=== PATIENT | female | born 1940 ===

== ENCOUNTER 2018-10-02 14:28 | Inpatient (IN) | payer MEDICARE ==
[~2018-10-02] VITALS: Ht 154.9 cm; Wt 51.7 kg
[2018-10-02] MEDS ORDERED: Z GUARD REMEDY PASTE 57 GM TUBE TOP PRN (18:45)
[2018-10-02] MEDS ORDERED: DULO60CA45 PO (19:06)
[2018-10-02] MEDS ORDERED: METF-440 PO (19:06)
[2018-10-02] MEDS ORDERED: FLUT1BLS6 IH (19:06)
[2018-10-02] MEDS ORDERED: ALPR0.5T8 PO (19:06)
[2018-10-02] MEDS ORDERED: ARIP5TAB10 PO (19:06)
[2018-10-02] MEDS ORDERED: LINA290C PO (19:06)
[2018-10-02] MEDS ORDERED: LACT1CAP69 PO (19:06)
[2018-10-02] MEDS ORDERED: CARV3.12 PO (19:06)
[2018-10-02] MEDS ORDERED: OXYC-451 PO (19:06)
[2018-10-02] MEDS ORDERED: PANT40TA4 PO (19:06)
[2018-10-02] MEDS ORDERED: EPIN0.3P3 IJ (19:06)
[2018-10-02] MEDS ORDERED: MONT10TA25 PO (19:06)
[2018-10-02] MEDS ORDERED: DEXT5TAB15 PO (19:06)
[2018-10-02] MEDS ORDERED: CYCL5TAB PO (19:06)
[2018-10-02] MEDS ORDERED: HYDR-4075 PO (19:06)
[2018-10-02] MEDS ORDERED: ROSU20TA2 PO (19:06)
[2018-10-02] MEDS ORDERED: TRAZ-214 PO (19:06)
[2018-10-02] MEDS ORDERED: BISA-79 PO (19:06)
[2018-10-02] MEDS ORDERED: LEVO25TA9 PO (19:06)
[2018-10-02] MEDS ORDERED: MORP15TA PO (19:06)
[2018-10-02 19:39] VITALS: BP 136/57
[2018-10-02] MEDS: OXYCODONE HCL 5 MG TABLET PO PRN (20:03)
[2018-10-02 20:29] VITALS: BP 125/52
[2018-10-02 20:40] VITALS: BP 125/52
[2018-10-02] MEDS ORDERED: MORPHINE SULFATE IR 30 MG TABLET PO PRN (20:45)
[2018-10-02] MEDS: MORPHINE SULFATE SR 15 MG TABLET.SA PO SCH (21:22)
[2018-10-02] MEDS ORDERED: MONTELUKAST SODIUM 10 MG TABLET ONE (22:10)
[2018-10-02] MEDS ORDERED: TRAZODONE 100 MG TABLET ONE (22:11)
[2018-10-02] MEDS ORDERED: ARIPIPRAZOLE 5 MG TABLET ONE (22:11)
[2018-10-02] MEDS: TRAZODONE 100 MG TABLET PO SCH (22:18)
[2018-10-02] MEDS: ATORVASTATIN 40 MG TABLET PO SCH (22:18)
[2018-10-02] MEDS: MONTELUKAST SODIUM 10 MG TABLET PO SCH (22:18)
[2018-10-02] MEDS: ARIPIPRAZOLE 5 MG TABLET PO SCH (22:18)
[2018-10-03] MEDS: OXYCODONE HCL 5 MG TABLET PO PRN ×6 (00:14→23:51)
[2018-10-03] MEDS: MORPHINE SULFATE SR 15 MG TABLET.SA PO SCH ×3 (06:12→21:00)
[2018-10-03 06:17] VITALS: BP 115/52
[2018-10-03] MEDS: CARVEDILOL 3.125 MG TABLET PO SCH ×2 (08:38→17:06)
[2018-10-03] MEDS: DULOXETINE 60 MG CAPSULE.DR PO SCH (08:38)
[2018-10-03] MEDS: FLUTICASONE/VILANTEROL 1 EACH BLST.W.DEV INH SCH (08:38)
[2018-10-03] MEDS: hydrALAZINE HCL 10 MG TABLET PO SCH ×3 (08:39→17:05)
[2018-10-03] MEDS: LEVOTHYROXINE SODIUM 25 MCG TABLET PO SCH (08:49)
[2018-10-03 09:28] VITALS: BP 111/45
[2018-10-03] MEDS ORDERED: DEXTROSE 50% 50 ML DISP.SYRIN IV PRN (10:00)
[2018-10-03] MEDS: METFORMIN HCL 500 MG TABLET PO SCH ×2 (10:15→17:06)
[2018-10-03] MEDS ORDERED: Medication Not On Formulary EA (Cyclobenzaprine Hcl 10 MG) PO SCH (10:45)
[2018-10-03] MEDS: ACIDOPHILUS/BULGARICUS CHEW TAB PO SCH (11:38)
[2018-10-03] MEDS: BLOOD SUGAR DIAGNOSTIC 1 EACH STRIP VI SCH ×3 (11:44→20:52)
[2018-10-03] MEDS: INSULIN REGULAR, HUMAN 300 UNIT/3 ML VIAL SQ PRN (11:45)
[2018-10-03 16:53] VITALS: BP 142/69
[2018-10-03] MEDS ORDERED: AMPHET ASP PO SCH (17:00)
[2018-10-03] MEDS ORDERED: D AMPHET PO SCH (17:00)
[2018-10-03] MEDS ORDERED: [UNRECOGNIZED DRUG - OTHER] PO SCH (17:00)
[2018-10-03] MEDS ORDERED: AMPHET PO SCH (17:00)
[2018-10-03 20:01] VITALS: BP 119/61
[2018-10-03] MEDS: ATORVASTATIN 40 MG TABLET PO SCH (20:28)
[2018-10-03] MEDS: TRAZODONE 100 MG TABLET PO SCH (20:28)
[2018-10-03] MEDS: MONTELUKAST SODIUM 10 MG TABLET PO SCH (20:28)
[2018-10-03] MEDS: ARIPIPRAZOLE 5 MG TABLET PO SCH (20:29)
[2018-10-03] MEDS ORDERED: Medication Not On Formulary EA (Linaclotide (Linzess) 290 MCG) PO SCH (21:00)
[2018-10-04] MEDS: MORPHINE SULFATE SR 15 MG TABLET.SA PO SCH ×3 (05:00→21:07)
[2018-10-04 05:48] VITALS: BP 115/44
[2018-10-04] MEDS: BLOOD SUGAR DIAGNOSTIC 1 EACH STRIP VI SCH ×4 (06:30→20:48)
[2018-10-04 08:00] VITALS: BP 136/52
[2018-10-04] MEDS: METFORMIN HCL 500 MG TABLET PO SCH ×2 (08:24→18:31)
[2018-10-04] MEDS: ACIDOPHILUS/BULGARICUS CHEW TAB PO SCH (08:25)
[2018-10-04] MEDS: OXYCODONE HCL 5 MG TABLET PO PRN ×3 (08:25→18:31)
[2018-10-04] MEDS: DULOXETINE 60 MG CAPSULE.DR PO SCH (08:28)
[2018-10-04] MEDS: CARVEDILOL 3.125 MG TABLET PO SCH ×2 (08:30→18:32)
[2018-10-04] MEDS: hydrALAZINE HCL 10 MG TABLET PO SCH ×3 (08:31→18:31)
[2018-10-04] MEDS: FLUTICASONE/VILANTEROL 1 EACH BLST.W.DEV INH SCH (08:33)
[2018-10-04] MEDS: LEVOTHYROXINE SODIUM 25 MCG TABLET PO SCH (08:34)
[2018-10-04] MEDS ORDERED: Medication Not On Formulary EA (Lactobacillus Acidophilus (Probiotic) 1 EACH) PO SCH (09:00)
[2018-10-04] MEDS: BISACODYL 10 MG SUPP.RECT RC ONE ×2 (12:27→15:04)
[2018-10-04] MEDS: ALPRAZOLAM 0.5 MG TABLET PO PRN (15:04)
[2018-10-04 16:54] VITALS: BP 126/64
[2018-10-04] MEDS: ATORVASTATIN 40 MG TABLET PO SCH (20:39)
[2018-10-04] MEDS: TRAZODONE 100 MG TABLET PO SCH (20:40)
[2018-10-04] MEDS: ARIPIPRAZOLE 5 MG TABLET PO SCH (20:40)
[2018-10-04] MEDS: MONTELUKAST SODIUM 10 MG TABLET PO SCH (20:40)
[2018-10-04] MEDS: CYCLOBENZAPRINE HCL 10 MG TABLET PO PRN (20:41)
[2018-10-04 20:48] VITALS: BP 113/50
[2018-10-04] MEDS: INSULIN REGULAR, HUMAN 300 UNIT/3 ML VIAL SQ PRN (20:54)
[2018-10-05] MEDS: OXYCODONE HCL 5 MG TABLET PO PRN ×4 (00:20→22:02)
[2018-10-05 05:00] VITALS: BP 119/50
[2018-10-05] MEDS: MORPHINE SULFATE SR 15 MG TABLET.SA PO SCH ×3 (05:33→21:05)
[2018-10-05] MEDS: BLOOD SUGAR DIAGNOSTIC 1 EACH STRIP VI SCH ×4 (06:41→21:10)
[2018-10-05 08:56] VITALS: BP 98/38
[2018-10-05] MEDS: ACIDOPHILUS/BULGARICUS CHEW TAB PO SCH (10:23)
[2018-10-05] MEDS: METFORMIN HCL 500 MG TABLET PO SCH ×2 (10:24→17:42)
[2018-10-05] MEDS: FLUTICASONE/VILANTEROL 1 EACH BLST.W.DEV INH SCH (10:25)
[2018-10-05] MEDS: DULOXETINE 60 MG CAPSULE.DR PO SCH (10:26)
[2018-10-05] MEDS: CARVEDILOL 3.125 MG TABLET PO SCH ×2 (10:26→17:43)
[2018-10-05] MEDS: LEVOTHYROXINE SODIUM 25 MCG TABLET PO SCH (10:27)
[2018-10-05] MEDS: hydrALAZINE HCL 10 MG TABLET PO SCH ×3 (10:27→17:47)
[2018-10-05 18:05] VITALS: BP 107/45
[2018-10-05] MEDS: MONTELUKAST SODIUM 10 MG TABLET PO SCH (21:03)
[2018-10-05] MEDS: ATORVASTATIN 40 MG TABLET PO SCH (21:03)
[2018-10-05] MEDS: ARIPIPRAZOLE 5 MG TABLET PO SCH (21:03)
[2018-10-05] MEDS: TRAZODONE 100 MG TABLET PO SCH (21:04)
[2018-10-05 21:14] VITALS: BP 111/49
[2018-10-06] MEDS: OXYCODONE HCL 5 MG TABLET PO PRN ×5 (02:27→23:17)
[2018-10-06] MEDS: MORPHINE SULFATE SR 15 MG TABLET.SA PO SCH ×3 (05:02→21:04)
[2018-10-06] MEDS: CYCLOBENZAPRINE HCL 10 MG TABLET PO PRN ×2 (05:35→16:52)
[2018-10-06 06:20] VITALS: BP 103/46
[2018-10-06] MEDS: BLOOD SUGAR DIAGNOSTIC 1 EACH STRIP VI SCH ×4 (06:30→21:03)
[2018-10-06] MEDS: PANTOPRAZOLE SODIUM 40 MG TABLET.DR PO SCH (06:43)
[2018-10-06 08:20] VITALS: BP 91/34
[2018-10-06] MEDS: FLUTICASONE/VILANTEROL 1 EACH BLST.W.DEV INH SCH (08:51)
[2018-10-06] MEDS: DULOXETINE 60 MG CAPSULE.DR PO SCH (08:51)
[2018-10-06] MEDS: ACIDOPHILUS/BULGARICUS CHEW TAB PO SCH (08:51)
[2018-10-06] MEDS: METFORMIN HCL 500 MG TABLET PO SCH ×2 (08:51→17:38)
[2018-10-06] MEDS: CARVEDILOL 3.125 MG TABLET PO SCH ×2 (08:51→17:40)
[2018-10-06] MEDS: LEVOTHYROXINE SODIUM 25 MCG TABLET PO SCH (08:52)
[2018-10-06] MEDS: hydrALAZINE HCL 10 MG TABLET PO SCH ×3 (09:00→17:39)
[2018-10-06] MEDS: ALPRAZOLAM 0.5 MG TABLET PO PRN (10:58)
[2018-10-06 17:16] VITALS: BP 122/49
[2018-10-06 20:15] VITALS: BP 128/56
[2018-10-06] MEDS: CYCLOBENZAPRINE HCL 10 MG TABLET PO SCH (20:51)
[2018-10-06] MEDS: ARIPIPRAZOLE 5 MG TABLET PO SCH (20:51)
[2018-10-06] MEDS: ATORVASTATIN 40 MG TABLET PO SCH (20:52)
[2018-10-06] MEDS: MONTELUKAST SODIUM 10 MG TABLET PO SCH (20:52)
[2018-10-06] MEDS: TRAZODONE 100 MG TABLET PO SCH (20:52)
[2018-10-07] MEDS: OXYCODONE HCL 5 MG TABLET PO PRN ×3 (03:18→15:51)
[2018-10-07 05:30] VITALS: BP 125/59
[2018-10-07] MEDS ORDERED: MORPHINE SULFATE IR 30 MG TABLET ONE (05:42)
[2018-10-07] MEDS: CYCLOBENZAPRINE HCL 10 MG TABLET PO PRN (06:34)
[2018-10-07] MEDS: MORPHINE SULFATE SR 15 MG TABLET.SA PO SCH ×3 (06:35→21:09)
[2018-10-07] MEDS: BLOOD SUGAR DIAGNOSTIC 1 EACH STRIP VI SCH ×4 (07:06→21:14)
[2018-10-07] MEDS: METFORMIN HCL 500 MG TABLET PO SCH ×2 (07:48→17:15)
[2018-10-07] MEDS: CARVEDILOL 3.125 MG TABLET PO SCH ×2 (07:51→18:07)
[2018-10-07 07:53] VITALS: BP 117/59
[2018-10-07] MEDS: hydrALAZINE HCL 10 MG TABLET PO SCH ×3 (09:00→17:00)
[2018-10-07] MEDS: LEVOTHYROXINE SODIUM 25 MCG TABLET PO SCH (09:27)
[2018-10-07] MEDS: PREGABALIN 50 MG CAPSULE PO SCH ×3 (09:27→17:16)
[2018-10-07] MEDS: ACIDOPHILUS/BULGARICUS CHEW TAB PO SCH (09:27)
[2018-10-07] MEDS: DULOXETINE 60 MG CAPSULE.DR PO SCH (09:28)
[2018-10-07] MEDS: FLUTICASONE/VILANTEROL 1 EACH BLST.W.DEV INH SCH (09:28)
[2018-10-07] MEDS: LIDOCAINE 5% PATCH TD SCH (09:28)
[2018-10-07 16:20] VITALS: BP 126/57
[2018-10-07 19:37] VITALS: BP 117/54
[2018-10-07] MEDS: ARIPIPRAZOLE 5 MG TABLET PO SCH (21:06)
[2018-10-07] MEDS: TRAZODONE 100 MG TABLET PO SCH (21:07)
[2018-10-07] MEDS: ATORVASTATIN 40 MG TABLET PO SCH (21:07)
[2018-10-07] MEDS: CYCLOBENZAPRINE HCL 10 MG TABLET PO SCH (21:07)
[2018-10-07] MEDS: MONTELUKAST SODIUM 10 MG TABLET PO SCH (21:08)
[2018-10-07] MEDS: ENOXAPARIN SODIUM 40 MG/0.4 ML DISP.SYRIN SQ SCH (21:18)
[2018-10-08 05:12] VITALS: BP 130/57
[2018-10-08] MEDS: MORPHINE SULFATE SR 15 MG TABLET.SA PO SCH ×3 (06:21→21:18)
[2018-10-08] MEDS: BLOOD SUGAR DIAGNOSTIC 1 EACH STRIP VI SCH ×4 (06:32→21:26)
[2018-10-08 07:13] LABS: BASOPHILS # (AUTO) 0.1 K/uL (0.0-8.0); EOSINOPHILS # (AUTO) 0.5 K/uL (0.0-0.7); EOSINOPHILS % (AUTO) 6.8 % (0.0-7.0); HEMATOCRIT 25.8 % (31.2-41.9); HEMOGLOBIN 8.5 g/dL (10.9-14.3); LYMPHOCYTES # (AUTO) 1.3 K/uL (20.0-40.0); MEAN CORPUSCULAR HEMOGLOBIN 29.5 uug (24.7-32.8); MEAN CORPUSCULAR HGB CONC 33 g/dL (32.3-35.6); MONOCYTES # (AUTO) 0.6 K/uL (2.0-10.0); NEUTROPHILS % (AUTO) 66.2 % (38.5-71.5); PLATELET COUNT (AUTO) 277 K/uL (179-408); RED BLOOD CELL COUNT(AUTO) 2.89 MIL/uL (3.63-4.92); WHITE BLOOD COUNT (AUTO) 7.5 K/uL (3.8-11.8)
[2018-10-08 07:31] LABS: ALANINE AMINOTRANSFERASE 21 U/L (14-59); ALKALINE PHOSPHATASE 84 U/L (50-136); ASPARTATE AMINOTRANSFERASE 15 U/L (15-37); BILIRUBIN,TOTAL 0.3 mg/dL (0.2-1.0); CARBON DIOXIDE 34 mmol/L (21-32); CHLORIDE 100 mmol/L (98-107); CREATININE 0.6 mg/dL (0.6-1.3); GLUCOSE 112 mg/dL (74-106); MAGNESIUM 1.9 mg/dL (1.8-2.4); TOTAL PROTEIN, SERUM 6.7 g/dL (6.4-8.2); UREA NITROGEN, BLOOD 11 mg/dL (7-18)
[2018-10-08] MEDS: CARVEDILOL 3.125 MG TABLET PO SCH ×2 (08:00→17:33)
[2018-10-08] MEDS: OXYCODONE HCL 5 MG TABLET PO PRN ×3 (08:10→19:43)
[2018-10-08] MEDS: DULOXETINE 60 MG CAPSULE.DR PO SCH (08:11)
[2018-10-08] MEDS: hydrALAZINE HCL 10 MG TABLET PO SCH ×3 (08:19→17:00)
[2018-10-08] MEDS: LEVOTHYROXINE SODIUM 25 MCG TABLET PO SCH (08:20)
[2018-10-08] MEDS: ACIDOPHILUS/BULGARICUS CHEW TAB PO SCH (08:20)
[2018-10-08] MEDS: METFORMIN HCL 500 MG TABLET PO SCH ×2 (08:21→17:25)
[2018-10-08] MEDS: PREGABALIN 50 MG CAPSULE PO SCH ×3 (08:21→17:22)
[2018-10-08] MEDS: FLUTICASONE/VILANTEROL 1 EACH BLST.W.DEV INH SCH (08:29)
[2018-10-08] MEDS: LIDOCAINE 5% PATCH TD SCH (08:30)
[2018-10-08 09:00] VITALS: BP 93/42
[2018-10-08 16:15] VITALS: BP 115/39
[2018-10-08 19:57] VITALS: BP 113/31
[2018-10-08] MEDS: ARIPIPRAZOLE 5 MG TABLET PO SCH (21:15)
[2018-10-08] MEDS: CYCLOBENZAPRINE HCL 10 MG TABLET PO SCH (21:15)
[2018-10-08] MEDS: ATORVASTATIN 40 MG TABLET PO SCH (21:15)
[2018-10-08] MEDS: MONTELUKAST SODIUM 10 MG TABLET PO SCH (21:17)
[2018-10-08] MEDS: TRAZODONE 100 MG TABLET PO SCH (21:17)
[2018-10-08] MEDS: ENOXAPARIN SODIUM 40 MG/0.4 ML DISP.SYRIN SQ SCH (21:26)
[2018-10-08] MEDS: ALPRAZOLAM 0.5 MG TABLET PO PRN (21:28)
[2018-10-09 05:14] VITALS: BP 157/63
[2018-10-09] MEDS: MORPHINE SULFATE SR 15 MG TABLET.SA PO SCH ×3 (05:20→23:02)
[2018-10-09] MEDS: BLOOD SUGAR DIAGNOSTIC 1 EACH STRIP VI SCH ×4 (06:36→20:48)
[2018-10-09 07:05] LABS: BASOPHILS # (AUTO) 0.1 K/uL (0.0-8.0); EOSINOPHILS # (AUTO) 0.5 K/uL (0.0-0.7); EOSINOPHILS % (AUTO) 6.8 % (0.0-7.0); HEMATOCRIT 23.5 % (31.2-41.9); HEMOGLOBIN 7.7 g/dL (10.9-14.3); LYMPHOCYTES # (AUTO) 1.2 K/uL (20.0-40.0); LYMPHOCYTES % (AUTO) 17.9 % (20.5-51.5); MEAN CORPUSCULAR HEMOGLOBIN 29.3 uug (24.7-32.8); MEAN CORPUSCULAR HGB CONC 33 g/dL (32.3-35.6); MEAN CORPUSCULAR VOLUME 88.9 fL (75.5-95.3); MONOCYTES # (AUTO) 0.4 K/uL (2.0-10.0); MONOCYTES % (AUTO) 6.6 % (0.0-11.0); NEUTROPHILS # (AUTO) 4.6 K/uL (1.8-8.9); NEUTROPHILS % (AUTO) 67.7 % (38.5-71.5); PLATELET COUNT (AUTO) 259 K/uL (179-408); RED BLOOD CELL COUNT(AUTO) 2.65 MIL/uL (3.63-4.92); WHITE BLOOD COUNT (AUTO) 6.8 K/uL (3.8-11.8)
[2018-10-09 07:42] LABS: IRON, SERUM 20 ug/dL (50-175)
[2018-10-09 07:45] LABS: FERRITIN 11 ng/mL (8-252)
[2018-10-09] MEDS: CARVEDILOL 3.125 MG TABLET PO SCH ×2 (08:00→17:16)
[2018-10-09] MEDS: METFORMIN HCL 500 MG TABLET PO SCH ×2 (08:20→17:13)
[2018-10-09] MEDS: OXYCODONE HCL 5 MG TABLET PO PRN ×3 (08:20→19:48)
[2018-10-09] MEDS: ACIDOPHILUS/BULGARICUS CHEW TAB PO SCH (08:20)
[2018-10-09] MEDS: PREGABALIN 50 MG CAPSULE PO SCH ×3 (08:21→17:13)
[2018-10-09] MEDS: FLUTICASONE/VILANTEROL 1 EACH BLST.W.DEV INH SCH (08:21)
[2018-10-09] MEDS: LEVOTHYROXINE SODIUM 25 MCG TABLET PO SCH (08:21)
[2018-10-09] MEDS: DULOXETINE 60 MG CAPSULE.DR PO SCH (08:22)
[2018-10-09] MEDS: LIDOCAINE 5% PATCH TD SCH (08:23)
[2018-10-09] MEDS: hydrALAZINE HCL 10 MG TABLET PO SCH ×3 (08:34→17:00)
[2018-10-09 09:04] VITALS: BP 97/39
[2018-10-09 16:04] VITALS: BP 116/43
[2018-10-09] MEDS: INSULIN REGULAR, HUMAN 300 UNIT/3 ML VIAL SQ PRN (16:57)
[2018-10-09] MEDS: ATORVASTATIN 40 MG TABLET PO SCH (20:48)
[2018-10-09] MEDS: MONTELUKAST SODIUM 10 MG TABLET PO SCH (20:49)
[2018-10-09] MEDS: CYCLOBENZAPRINE HCL 10 MG TABLET PO SCH (20:49)
[2018-10-09] MEDS: ARIPIPRAZOLE 5 MG TABLET PO SCH (20:49)
[2018-10-09] MEDS: TRAZODONE 100 MG TABLET PO SCH (20:50)
[2018-10-09] MEDS: ENOXAPARIN SODIUM 40 MG/0.4 ML DISP.SYRIN SQ SCH (20:54)
[2018-10-09 20:56] VITALS: BP 124/51
[2018-10-10] MEDS: OXYCODONE HCL 5 MG TABLET PO PRN ×4 (00:38→18:16)
[2018-10-10] MEDS: MORPHINE SULFATE SR 15 MG TABLET.SA PO SCH ×3 (06:36→21:03)
[2018-10-10] MEDS: BLOOD SUGAR DIAGNOSTIC 1 EACH STRIP VI SCH ×4 (06:37→21:02)
[2018-10-10 06:46] LABS: ALANINE AMINOTRANSFERASE 12 U/L (14-59); ALKALINE PHOSPHATASE 88 U/L (50-136); ASPARTATE AMINOTRANSFERASE 11 U/L (15-37); BILIRUBIN,TOTAL 0.2 mg/dL (0.2-1.0); CARBON DIOXIDE 33 mmol/L (21-32); CHLORIDE 103 mmol/L (98-107); CREATININE 0.5 mg/dL (0.6-1.3); GLUCOSE 101 mg/dL (74-106); MAGNESIUM 2.1 mg/dL (1.8-2.4); PHOSPHOROUS 3.8 mg/dL (2.5-4.9); POTASSIUM 4.2 mmol/L (3.5-5.1); TOTAL PROTEIN, SERUM 5.8 g/dL (6.4-8.2); UREA NITROGEN, BLOOD 12 mg/dL (7-18)
[2018-10-10 07:06] LABS: BASOPHILS # (AUTO) 0.1 K/uL (0.0-8.0); BASOPHILS % (AUTO) 1.2 % (0.0-2.0); EOSINOPHILS # (AUTO) 0.4 K/uL (0.0-0.7); EOSINOPHILS % (AUTO) 6.8 % (0.0-7.0); HEMATOCRIT 23.2 % (31.2-41.9); HEMOGLOBIN 7.6 g/dL (10.9-14.3); LYMPHOCYTES # (AUTO) 1.5 K/uL (20.0-40.0); LYMPHOCYTES % (AUTO) 24.1 % (20.5-51.5); MEAN CORPUSCULAR HEMOGLOBIN 29.2 uug (24.7-32.8); MEAN CORPUSCULAR HGB CONC 33 g/dL (32.3-35.6); MEAN CORPUSCULAR VOLUME 88.7 fL (75.5-95.3); MONOCYTES # (AUTO) 0.5 K/uL (2.0-10.0); MONOCYTES % (AUTO) 7.8 % (0.0-11.0); NEUTROPHILS # (AUTO) 3.8 K/uL (1.8-8.9); NEUTROPHILS % (AUTO) 60.1 % (38.5-71.5); PLATELET COUNT (AUTO) 270 K/uL (179-408); RED BLOOD CELL COUNT(AUTO) 2.61 MIL/uL (3.63-4.92); WHITE BLOOD COUNT (AUTO) 6.4 K/uL (3.8-11.8)
[2018-10-10 08:00] VITALS: BP 102/43
[2018-10-10] MEDS: CARVEDILOL 3.125 MG TABLET PO SCH ×2 (08:00→18:13)
[2018-10-10] MEDS: PREGABALIN 50 MG CAPSULE PO SCH ×3 (08:24→18:12)
[2018-10-10] MEDS: METFORMIN HCL 500 MG TABLET PO SCH ×2 (08:24→18:12)
[2018-10-10] MEDS: FERROUS SULFATE SLOW RELEASE 45 MG (ELEMENTAL) TABEC PO SCH (08:53)
[2018-10-10] MEDS: DULOXETINE 60 MG CAPSULE.DR PO SCH (08:53)
[2018-10-10] MEDS: LEVOTHYROXINE SODIUM 25 MCG TABLET PO SCH (08:53)
[2018-10-10] MEDS: ACIDOPHILUS/BULGARICUS CHEW TAB PO SCH (08:53)
[2018-10-10] MEDS: ALPRAZOLAM 0.5 MG TABLET PO PRN (08:53)
[2018-10-10] MEDS: FLUTICASONE/VILANTEROL 1 EACH BLST.W.DEV INH SCH (08:54)
[2018-10-10] MEDS: hydrALAZINE HCL 10 MG TABLET PO SCH ×3 (08:57→18:14)
[2018-10-10] MEDS: LIDOCAINE 5% PATCH TD SCH (08:57)
[2018-10-10 16:00] VITALS: BP 127/54
[2018-10-10] MEDS: CYCLOBENZAPRINE HCL 10 MG TABLET PO SCH (21:00)
[2018-10-10] MEDS: ATORVASTATIN 40 MG TABLET PO SCH (21:00)
[2018-10-10] MEDS: MONTELUKAST SODIUM 10 MG TABLET PO SCH (21:00)
[2018-10-10] MEDS: TRAZODONE 100 MG TABLET PO SCH (21:01)
[2018-10-10] MEDS: ARIPIPRAZOLE 5 MG TABLET PO SCH (21:01)
[2018-10-10] MEDS: ENOXAPARIN SODIUM 40 MG/0.4 ML DISP.SYRIN SQ SCH (21:11)
[2018-10-10 21:27] VITALS: BP 104/60
[2018-10-11] MEDS: OXYCODONE HCL 5 MG TABLET PO PRN ×4 (01:48→20:11)
[2018-10-11] MEDS: PANTOPRAZOLE SODIUM 40 MG TABLET.DR PO SCH (03:25)
[2018-10-11 06:20] VITALS: BP 114/67
[2018-10-11] MEDS: MORPHINE SULFATE SR 15 MG TABLET.SA PO SCH ×2 (06:42→13:43)
[2018-10-11] MEDS: BLOOD SUGAR DIAGNOSTIC 1 EACH STRIP VI SCH ×4 (06:50→20:23)
[2018-10-11] MEDS: PREGABALIN 50 MG CAPSULE PO SCH ×3 (08:27→17:28)
[2018-10-11] MEDS: ACIDOPHILUS/BULGARICUS CHEW TAB PO SCH (08:27)
[2018-10-11] MEDS: LIDOCAINE 5% PATCH TD SCH (08:28)
[2018-10-11] MEDS: LEVOTHYROXINE SODIUM 25 MCG TABLET PO SCH (08:29)
[2018-10-11] MEDS: hydrALAZINE HCL 10 MG TABLET PO SCH ×3 (08:29→17:00)
[2018-10-11] MEDS: DULOXETINE 60 MG CAPSULE.DR PO SCH (08:29)
[2018-10-11] MEDS: FERROUS SULFATE SLOW RELEASE 45 MG (ELEMENTAL) TABEC PO SCH (08:29)
[2018-10-11] MEDS: CARVEDILOL 3.125 MG TABLET PO SCH ×2 (08:30→17:30)
[2018-10-11] MEDS: FLUTICASONE/VILANTEROL 1 EACH BLST.W.DEV INH SCH (08:31)
[2018-10-11] MEDS: METFORMIN HCL 500 MG TABLET PO SCH ×2 (08:31→17:28)
[2018-10-11 08:58] VITALS: BP 115/44
[2018-10-11] MEDS: ALPRAZOLAM 0.5 MG TABLET PO PRN (12:26)
[2018-10-11 18:04] VITALS: BP 127/58
[2018-10-11] MEDS: ATORVASTATIN 40 MG TABLET PO SCH (20:11)
[2018-10-11] MEDS: MONTELUKAST SODIUM 10 MG TABLET PO SCH (20:11)
[2018-10-11] MEDS: CYCLOBENZAPRINE HCL 10 MG TABLET PO SCH (20:12)
[2018-10-11] MEDS: TRAZODONE 100 MG TABLET PO SCH (20:12)
[2018-10-11] MEDS: ARIPIPRAZOLE 5 MG TABLET PO SCH (20:13)
[2018-10-11] MEDS: ENOXAPARIN SODIUM 40 MG/0.4 ML DISP.SYRIN SQ SCH (20:22)
[2018-10-11 21:56] VITALS: BP 115/47
[2018-10-12] MEDS: MORPHINE SULFATE SR 15 MG TABLET.SA PO SCH ×4 (00:05→22:36)
[2018-10-12 05:42] VITALS: BP 140/67
[2018-10-12] MEDS: BLOOD SUGAR DIAGNOSTIC 1 EACH STRIP VI SCH ×4 (06:44→21:40)
[2018-10-12] MEDS: ALPRAZOLAM 0.5 MG TABLET PO PRN ×2 (08:14→08:15)
[2018-10-12] MEDS: METFORMIN HCL 500 MG TABLET PO SCH ×2 (08:15→16:41)
[2018-10-12] MEDS: PREGABALIN 50 MG CAPSULE PO SCH ×3 (08:15→16:40)
[2018-10-12] MEDS: ACIDOPHILUS/BULGARICUS CHEW TAB PO SCH (08:15)
[2018-10-12] MEDS: OXYCODONE HCL 5 MG TABLET PO PRN ×4 (08:15→21:27)
[2018-10-12] MEDS: DULOXETINE 60 MG CAPSULE.DR PO SCH (08:17)
[2018-10-12] MEDS: LEVOTHYROXINE SODIUM 25 MCG TABLET PO SCH (08:17)
[2018-10-12] MEDS: FERROUS SULFATE SLOW RELEASE 45 MG (ELEMENTAL) TABEC PO SCH (08:17)
[2018-10-12] MEDS: LIDOCAINE 5% PATCH TD SCH (08:18)
[2018-10-12] MEDS: FLUTICASONE/VILANTEROL 1 EACH BLST.W.DEV INH SCH (08:18)
[2018-10-12] MEDS: CARVEDILOL 3.125 MG TABLET PO SCH ×2 (08:19→16:41)
[2018-10-12] MEDS: hydrALAZINE HCL 10 MG TABLET PO SCH ×3 (08:52→16:54)
[2018-10-12 10:11] VITALS: BP 121/53
[2018-10-12 16:00] VITALS: BP 112/44
[2018-10-12 19:35] VITALS: BP 100/40
[2018-10-12] MEDS: ATORVASTATIN 40 MG TABLET PO SCH (21:26)
[2018-10-12] MEDS: CYCLOBENZAPRINE HCL 10 MG TABLET PO SCH (21:26)
[2018-10-12] MEDS: TRAZODONE 100 MG TABLET PO SCH (21:26)
[2018-10-12] MEDS: MONTELUKAST SODIUM 10 MG TABLET PO SCH (21:27)
[2018-10-12] MEDS: ENOXAPARIN SODIUM 40 MG/0.4 ML DISP.SYRIN SQ SCH (21:29)
[2018-10-12] MEDS: ARIPIPRAZOLE 5 MG TABLET PO SCH (21:30)
[2018-10-12] MEDS: BISACODYL 5 MG TABLET.DR PO PRN (22:36)
[2018-10-13 04:45] VITALS: BP 140/41
[2018-10-13] MEDS: OXYCODONE HCL 5 MG TABLET PO PRN ×3 (05:11→18:02)
[2018-10-13] MEDS: MORPHINE SULFATE SR 15 MG TABLET.SA PO SCH ×3 (06:31→22:50)
[2018-10-13] MEDS: BLOOD SUGAR DIAGNOSTIC 1 EACH STRIP VI SCH ×4 (06:32→21:46)
[2018-10-13 07:16] LABS: BASOPHILS # (AUTO) 0.1 K/uL (0.0-8.0); BASOPHILS % (AUTO) 1.2 % (0.0-2.0); EOSINOPHILS # (AUTO) 0.5 K/uL (0.0-0.7); EOSINOPHILS % (AUTO) 7.4 % (0.0-7.0); HEMATOCRIT 24.5 % (31.2-41.9); LYMPHOCYTES # (AUTO) 1.2 K/uL (20.0-40.0); LYMPHOCYTES % (AUTO) 19.2 % (20.5-51.5); MEAN CORPUSCULAR HEMOGLOBIN 28.7 uug (24.7-32.8); MEAN CORPUSCULAR HGB CONC 33 g/dL (32.3-35.6); MEAN CORPUSCULAR VOLUME 88.3 fL (75.5-95.3); MONOCYTES # (AUTO) 0.5 K/uL (2.0-10.0); MONOCYTES % (AUTO) 8.5 % (0.0-11.0); NEUTROPHILS # (AUTO) 3.9 K/uL (1.8-8.9); NEUTROPHILS % (AUTO) 63.7 % (38.5-71.5); PLATELET COUNT (AUTO) 269 K/uL (179-408); RED BLOOD CELL COUNT(AUTO) 2.78 MIL/uL (3.63-4.92); WHITE BLOOD COUNT (AUTO) 6.1 K/uL (3.8-11.8)
[2018-10-13] MEDS: PREGABALIN 50 MG CAPSULE PO SCH ×3 (08:10→16:49)
[2018-10-13] MEDS: ACIDOPHILUS/BULGARICUS CHEW TAB PO SCH (08:13)
[2018-10-13] MEDS: hydrALAZINE HCL 10 MG TABLET PO SCH ×3 (08:14→16:57)
[2018-10-13] MEDS: LEVOTHYROXINE SODIUM 25 MCG TABLET PO SCH (08:14)
[2018-10-13] MEDS: DULOXETINE 60 MG CAPSULE.DR PO SCH (08:15)
[2018-10-13] MEDS: FERROUS SULFATE SLOW RELEASE 45 MG (ELEMENTAL) TABEC PO SCH (08:15)
[2018-10-13] MEDS: CARVEDILOL 3.125 MG TABLET PO SCH ×2 (08:16→17:00)
[2018-10-13] MEDS: LIDOCAINE 5% PATCH TD SCH (08:18)
[2018-10-13] MEDS: FLUTICASONE/VILANTEROL 1 EACH BLST.W.DEV INH SCH (08:19)
[2018-10-13 08:30] LABS: FERRITIN 9 ng/mL (8-252)
[2018-10-13 08:35] VITALS: BP 122/44
[2018-10-13] MEDS: METFORMIN HCL 500 MG TABLET PO SCH ×2 (09:08→17:01)
[2018-10-13 10:07] LABS: IRON, SERUM 18 ug/dL (50-175)
[2018-10-13] MEDS: BISACODYL 5 MG TABLET.DR PO PRN (10:30)
[2018-10-13] MEDS: ALPRAZOLAM 0.5 MG TABLET PO PRN (10:31)
[2018-10-13] MEDS ORDERED: BISACODYL 10 MG SUPP.RECT RC PRN (11:30)
[2018-10-13 16:23] VITALS: BP 105/47
[2018-10-13] MEDS: INSULIN REGULAR, HUMAN 300 UNIT/3 ML VIAL SQ PRN (17:41)
[2018-10-13 20:19] VITALS: BP 117/48
[2018-10-13] MEDS: MONTELUKAST SODIUM 10 MG TABLET PO SCH (21:31)
[2018-10-13] MEDS: CYCLOBENZAPRINE HCL 10 MG TABLET PO SCH (21:32)
[2018-10-13] MEDS: TRAZODONE 100 MG TABLET PO SCH (21:34)
[2018-10-13] MEDS: ENOXAPARIN SODIUM 40 MG/0.4 ML DISP.SYRIN SQ SCH (21:35)
[2018-10-13] MEDS: ATORVASTATIN 40 MG TABLET PO SCH (21:36)
[2018-10-13] MEDS: ARIPIPRAZOLE 5 MG TABLET PO SCH (21:36)
[2018-10-13] MEDS ORDERED: ATORVASTATIN 40 MG TABLET ONE (21:37)
[2018-10-14 04:46] VITALS: BP 108/48
[2018-10-14] MEDS: MORPHINE SULFATE SR 15 MG TABLET.SA PO SCH ×3 (06:39→21:35)
[2018-10-14] MEDS: BLOOD SUGAR DIAGNOSTIC 1 EACH STRIP VI SCH ×4 (06:42→20:50)
[2018-10-14 07:43] VITALS: BP 98/42
[2018-10-14] MEDS: CARVEDILOL 3.125 MG TABLET PO SCH ×2 (08:00→17:17)
[2018-10-14] MEDS: LIDOCAINE 5% PATCH TD SCH (08:13)
[2018-10-14] MEDS: ACIDOPHILUS/BULGARICUS CHEW TAB PO SCH (08:14)
[2018-10-14] MEDS: METFORMIN HCL 500 MG TABLET PO SCH ×2 (08:14→17:12)
[2018-10-14] MEDS: PREGABALIN 50 MG CAPSULE PO SCH ×3 (08:14→17:12)
[2018-10-14] MEDS: FLUTICASONE/VILANTEROL 1 EACH BLST.W.DEV INH SCH (08:14)
[2018-10-14] MEDS: ALPRAZOLAM 0.5 MG TABLET PO PRN (08:14)
[2018-10-14] MEDS: FERROUS SULFATE SLOW RELEASE 45 MG (ELEMENTAL) TABEC PO SCH (08:14)
[2018-10-14] MEDS: OXYCODONE HCL 5 MG TABLET PO PRN ×3 (08:14→21:35)
[2018-10-14] MEDS: DULOXETINE 60 MG CAPSULE.DR PO SCH (08:15)
[2018-10-14] MEDS: LEVOTHYROXINE SODIUM 25 MCG TABLET PO SCH (08:16)
[2018-10-14] MEDS: hydrALAZINE HCL 10 MG TABLET PO SCH ×3 (08:23→17:00)
[2018-10-14] MEDS: CYCLOBENZAPRINE HCL 10 MG TABLET PO PRN (15:39)
[2018-10-14 15:59] VITALS: BP 122/52
[2018-10-14] MEDS: MONTELUKAST SODIUM 10 MG TABLET PO SCH (20:42)
[2018-10-14] MEDS: ATORVASTATIN 40 MG TABLET PO SCH (20:42)
[2018-10-14] MEDS: ARIPIPRAZOLE 5 MG TABLET PO SCH (20:43)
[2018-10-14] MEDS: TRAZODONE 100 MG TABLET PO SCH (20:43)
[2018-10-14] MEDS: CYCLOBENZAPRINE HCL 10 MG TABLET PO SCH (20:45)
[2018-10-14] MEDS: ENOXAPARIN SODIUM 40 MG/0.4 ML DISP.SYRIN SQ SCH (20:46)
[2018-10-14 20:55] VITALS: BP 127/56
[2018-10-14] MEDS: INSULIN REGULAR, HUMAN 300 UNIT/3 ML VIAL SQ PRN (20:55)
[2018-10-15 04:56] VITALS: BP 129/58
[2018-10-15] MEDS: MORPHINE SULFATE SR 15 MG TABLET.SA PO SCH ×3 (06:01→21:55)
[2018-10-15] MEDS: BLOOD SUGAR DIAGNOSTIC 1 EACH STRIP VI SCH ×4 (06:32→21:17)
[2018-10-15] MEDS: OXYCODONE HCL 5 MG TABLET PO PRN ×3 (07:55→17:39)
[2018-10-15 08:00] VITALS: BP 106/49
[2018-10-15] MEDS: METFORMIN HCL 500 MG TABLET PO SCH ×2 (08:01→17:21)
[2018-10-15] MEDS: PREGABALIN 50 MG CAPSULE PO SCH ×3 (08:01→17:21)
[2018-10-15] MEDS: ACIDOPHILUS/BULGARICUS CHEW TAB PO SCH (08:01)
[2018-10-15] MEDS: DULOXETINE 60 MG CAPSULE.DR PO SCH (08:02)
[2018-10-15] MEDS: FERROUS SULFATE SLOW RELEASE 45 MG (ELEMENTAL) TABEC PO SCH (08:02)
[2018-10-15] MEDS: FLUTICASONE/VILANTEROL 1 EACH BLST.W.DEV INH SCH (08:03)
[2018-10-15] MEDS: CARVEDILOL 3.125 MG TABLET PO SCH ×2 (08:04→17:22)
[2018-10-15] MEDS: LIDOCAINE 5% PATCH TD SCH (08:05)
[2018-10-15] MEDS: hydrALAZINE HCL 10 MG TABLET PO SCH ×3 (08:06→17:00)
[2018-10-15] MEDS: LEVOTHYROXINE SODIUM 25 MCG TABLET PO SCH (08:07)
[2018-10-15] MEDS ORDERED: ONDANSETRON 4 MG/2 ML VIAL IV PRN (12:15)
[2018-10-15] MEDS ORDERED: ONDANSETRON ODT 4 MG TAB.RAPDIS SL PRN (12:45)
[2018-10-15 16:25] VITALS: BP 110/36
[2018-10-15] MEDS ORDERED: ACETAMINOPHEN 325 MG TABLET PO PRN (20:00)
[2018-10-15] MEDS: TRAZODONE 100 MG TABLET PO SCH (21:08)
[2018-10-15] MEDS: MONTELUKAST SODIUM 10 MG TABLET PO SCH (21:08)
[2018-10-15] MEDS: ATORVASTATIN 40 MG TABLET PO SCH (21:08)
[2018-10-15] MEDS: ARIPIPRAZOLE 5 MG TABLET PO SCH (21:09)
[2018-10-15] MEDS: CYCLOBENZAPRINE HCL 10 MG TABLET PO SCH (21:09)
[2018-10-15 21:21] VITALS: BP 97/58
[2018-10-15] MEDS: ENOXAPARIN SODIUM 40 MG/0.4 ML DISP.SYRIN SQ SCH (21:23)
[2018-10-15] MEDS: ALPRAZOLAM 0.5 MG TABLET PO PRN (21:59)
[2018-10-16 05:20] VITALS: BP 110/62
[2018-10-16] MEDS: MORPHINE SULFATE SR 15 MG TABLET.SA PO SCH ×2 (06:35→14:46)
[2018-10-16] MEDS: BLOOD SUGAR DIAGNOSTIC 1 EACH STRIP VI SCH ×2 (06:49→11:46)
[2018-10-16] MEDS: CARVEDILOL 3.125 MG TABLET PO SCH (08:00)
[2018-10-16] MEDS: METFORMIN HCL 500 MG TABLET PO SCH (08:32)
[2018-10-16] MEDS: PREGABALIN 50 MG CAPSULE PO SCH ×2 (08:32→12:47)
[2018-10-16] MEDS: ACIDOPHILUS/BULGARICUS CHEW TAB PO SCH (08:32)
[2018-10-16] MEDS: FLUTICASONE/VILANTEROL 1 EACH BLST.W.DEV INH SCH (08:33)
[2018-10-16] MEDS: DULOXETINE 60 MG CAPSULE.DR PO SCH (08:33)
[2018-10-16] MEDS: LIDOCAINE 5% PATCH TD SCH (08:34)
[2018-10-16] MEDS: LEVOTHYROXINE SODIUM 25 MCG TABLET PO SCH (08:34)
[2018-10-16] MEDS: FERROUS SULFATE SLOW RELEASE 45 MG (ELEMENTAL) TABEC PO SCH (08:34)
[2018-10-16] MEDS: OXYCODONE HCL 5 MG TABLET PO PRN ×2 (08:35→12:49)
[2018-10-16 08:42] VITALS: BP 96/41
[2018-10-16] MEDS: INSULIN REGULAR, HUMAN 300 UNIT/3 ML VIAL SQ PRN (08:44)
[2018-10-16] MEDS: hydrALAZINE HCL 10 MG TABLET PO SCH ×2 (08:45→12:50)
[2018-10-16 12:50] VITALS: BP 109/47
== END 2018-10-16 15:50 | DRG 561 ==
PROVIDERS: ADMIT Physical Medicine & Rehabilitation Pain Medicine; ATTEND Physical Medicine & Rehabilitation Pain Medicine
DX: Z47.89 Encounter for other orthopedic aftercare (principal); E03.9 Hypothyroidism, unspecified; E11.9 Type 2 diabetes mellitus without complications; E78.5 Hyperlipidemia, unspecified; I10 Essential (primary) hypertension; I25.10 Atherosclerotic heart disease of native coronary artery without angina pectoris; Z95.1 Presence of aortocoronary bypass graft; J44.9 Chronic obstructive pulmonary disease, unspecified; M79.7 Fibromyalgia; D64.9 Anemia, unspecified; M43.16 Spondylolisthesis, lumbar region; M51.36 Other intervertebral disc degeneration, lumbar region; G89.29 Other chronic pain; R20.2 Paresthesia of skin; Z88.8 Allergy status to other drugs, medicaments and biological substances; Z88.1 Allergy status to other antibiotic agents; Z96.652 Presence of left artificial knee joint; Z88.3 Allergy status to other anti-infective agents; Z91.030 Bee allergy status
CPT/HCPCS: 36415; 71045; 83550; 83735; 84100; 85025; A4663; J1650; J1815; Q0162